=== PATIENT | male | born 1970 | race Caucasian/White ===

== ENCOUNTER 2019-01-14 08:01 | Emergency (ER) | payer OTHER ==
[2019-01-14 08:20] VITALS: BP 170/115
--- NOTE | 2019-01-14 09:00 | UC ---
Lower Extremity/Ankle HPI - HPI Summary HPI Summary: 48-year-old male comes in with a chief complaint of right foot pain. Pain started 2 days ago. He is walking around at home and he felt like his right first MTP joint needed to crack. No specific trauma. Pain is increased since that time. Pain is worse with ambulation. The pain is the greatest when he dorsiflex the great toe. No history of gout. No fevers or chills. - History of Current Complaint Chief Complaint: UCLowerExtremity Stated Complaint: RT BIG TOE PAIN Time Seen by Provider: 01/14/19 08:34 Pain Intensity: 6 - Allergies/Home Medications Allergies/Adverse Reactions: Allergies Allergy/AdvReac Type Severity Reaction Status Date / Time No Known Allergies Allergy Verified 01/14/19 08:17 Home Medications: Home Medications Ibuprofen TAB* [Advil TAB*] 400 mg PO Q6H PRN 01/14/19 [History Confirmed ] PMH/Surg Hx/FS Hx/Imm Hx Previously Healthy: Yes - Surgical History Surgical History: None - Family History Known Family History: Positive: Non-Contributory - Social History Alcohol Use: Occasionally Substance Use Type: None Smoking Status (MU): Current Every Day Smoker Type: Smokeless Tobacco Amount Used/How Often: 1/2 can daily - Immunization History Most Recent Tetanus Shot: 2013 Review of Systems All Other Systems Reviewed And Are Negative: Yes Constitutional: Positive: Negative Skin: Positive: Negative Eyes: Positive: Negative ENT: Positive: Negative Respiratory: Positive: Negative Cardiovascular: Positive: Negative Gastrointestinal: Positive: Negative Motor: Positive: Negative Neurovascular: Positive: Negative Musculoskeletal: Positive: Other: - SEE HPI Neurological: Positive: Negative Psychological: Positive: Negative Is Patient Immunocompromised?: No Physical Exam Triage Information Reviewed: Yes Appearance: Well-Appearing, No Pain Distress, Well-Nourished Vital Signs: Initial Vital Signs Temp 97.6 F 01/14/19 08:18 Pulse 79 01/14/19 08:18 Resp 15 01/14/19 08:18 BP 170/115 01/14/19 08:18 Pulse Ox 98 01/14/19 08:18 Vital Signs Reviewed: Yes Eye Exam: Normal Eyes: Positive: Conjunctiva Clear Neck: Positive: Supple Respiratory: Positive: No respiratory distress Musculoskeletal: Positive: Other: - Right foot is tender to palpation in the first MTP joint. There is some swelling. Minimal erythema. Slightly warm to touch but not hot to touch. Normal capillary refill no sensation deficit. The rest the foot is nontender to palpation. Ankle has full range of motion and is nontender to palpation. Neurological Exam: Normal Neurological: Positive: Alert, Muscle Tone Normal Psychological Exam: Normal Psychological: Positive: Age Appropriate Behavior Skin Exam: Normal Lower Extremity Course/Dx - Course Course Of Treatment: Patient Name: ISIDRO HATCH Medical Record#: [id number] Ordering Physician: Juliano Rojas MD Acct.#: [id number] : 1970 Age: 48 Sex: M Location: [facility] Exam Date: 01/14/19814 ADM Status: REG ER Order Information: FOOT RIGHT 3+ VWS Accession Number: [id number] CPT: 49921 INDICATION: Right foot pain. TECHNIQUE: 3 views of the right foot were obtained. FINDINGS: The bones are in normal alignment. There is mild soft tissue swelling at the level of the first metatarsal-phalangeal joint. There is a fracture of the medial sesamoid bone adjacent to the distal first metatarsal age-indeterminate although likely old. No other fractures are seen. Joint spaces appear maintained. IMPRESSION: FRACTURE OF THE MEDIAL SESAMOID BONE ADJACENT TO THE DISTAL FIRST METATARSAL AGE-INDETERMINATE ALTHOUGH LIKELY OLD. RECOMMEND CORRELATION FOR POINT TENDERNESS. <Electronically signed by Anderson Francisco MD in [facility]> 01/14/19841 I discussed the x-ray reports with the patient. When the pain started couple days ago the patient reports that he did feel like the joint needed to crack. Pain is worse with ambulation primarily with dorsiflexion of the great toe. There is redness is slightly warm but not hot to touch. Patient has no history of gout. Most likely this is the fractured sesamoid bone giving the problem. However gout is not ruled out. Patient was placed in a postop shoe by nursing is neurovascularly intact after placement postop shoe. He declined crutches so be using a cane if needed. I rneée a uric acid level. Treatment will be indomethacin 50 mg by mouth 3 times a day. Follow-up will be with orthopedics. - Differential Dx/Diagnosis Provider Diagnosis: Fracture of sesamoid bone of foot, closed Discharge - Sign-Out/Discharge Documenting (check all that apply): Patient Departure All imaging exams completed and their final reports reviewed: Yes - Discharge Plan Condition: Stable Disposition: HOME Prescriptions: Indomethacin CAP* [Indocin CAP*] 50 mg PO TID #21 cap Patient Education Materials: Gout (ED), Foot Fracture in Adults (ED) Referrals: Pavan Arreaga MD [Medical Doctor] - [facility] [Outside] Additional Instructions: FOLLOW UP WITH DR ARREAGA, ORTHOPEDICS. GET RECHECKED SOONER IF YOUR CONDITION WORSENS OR ANY QUESTIONS OR CONCERNS. - Billing Disposition and Condition Condition: STABLE Disposition: Home
== END 2019-01-14 09:18 | disposition home or self-care (01) ==
LOC: UCCORT 08:01
DX: S92.811A Other fracture of right foot, initial encounter for closed fracture (principal); F17.210 Nicotine dependence, cigarettes, uncomplicated; X58.XXXA Exposure to other specified factors, initial encounter; Y93.01 Activity, walking, marching and hiking; Y92.009 Unspecified place in unspecified non-institutional (private) residence as the place of occurrence of the external cause
CPT/HCPCS: 36415; 84550; 99203; G0463